=== PATIENT | female | born 1970 | race Caucasian/White ===

== ENCOUNTER 2021-07-23 10:55 | Emergency (ER) | payer OTHER ==
[2021-07-23] MEDS ORDERED: traMADol 50 MG Tab PO ONE (11:07)
[2021-07-23] MEDS ORDERED: Ibuprofen 800 MG Tab PO ONE (11:07)
--- NOTE | 2021-07-23 11:57 | EDM.PDOC ---
ED HPI GENERAL MEDICAL PROBLEM - General Chief Complaint: Lower Extremity Injury/Pain Stated Complaint: TWISTED ANKLE Time Seen by Provider: 07/23/21 11:00 Source of Information: Reports: Patient History Limitations: Reports: No Limitations - History of Present Illness INITIAL COMMENTS - FREE TEXT/NARRATIVE: Patient presented to the ED because of rt ankle and foot pain. She twisted her right foot and c/o 8/10 pain that is worse with ambulation. 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 Right Foot Pain Score (Numeric/FACES): 10 - Related Data Allergies Allergy/AdvReac Type Severity Reaction Status Date / Time codeine Allergy Anaphylactic Verified 07/23/21 11:08 Shock morphine Allergy Nausea and Verified 07/23/21 11:08 Vomiting Home Meds: Home Meds ALPRAZolam [Xanax] 0.5 mg PO ASDIRECTED PRN 07/28/14 [History] Levothyroxine Sodium [Synthroid] 137 mcg PO DAILY 07/28/14 [History] Multivitamin [Multi Vitamin Daily] 1 tab PO DAILY 07/28/14 [History] buPROPion HCl [Wellbutrin Xl] 150 mg PO DAILY 07/28/14 [History] Ibuprofen 800 mg PO Q8H PRN #30 tablet 07/23/21 [Rx] Past Medical History Endocrine/Metabolic History: Reports: Vitamin D Deficiency Hematologic History: Reports: Anemia, B12 Deficiency Oncologic (Cancer) History: Reports: Renal - Past Surgical History HEENT Surgical History: Reports: Tonsillectomy GI Surgical History: Reports: Cholecystectomy, Other (See Below) Other GI Surgeries/Procedures: Gastric bypass in 2010 Female Surgical History: Reports: Section, Hysterectomy, Nephrectomy, Other (See Below) Other Female Surgeries/Procedures: Partial nephrectomy. Endocrine Surgical History: Reports: Thyroidectomy Oncologic Surgical History: Reports: Other (See Below) Other Oncologic Surgeries/Procedures: partial nephrectomy Social & Family History - Tobacco Use Years of Tobacco use: 30 Packs/Tins Daily: 0.3 - Caffeine Use Caffeine Use: Reports: Coffee - Recreational Drug Use Recreational Drug Use: No Review of Systems - Review of Systems Review Of Systems: See Below Constitutional: Reports: No Symptoms Eyes: Reports: No Symptoms Ears: Reports: No Symptoms Nose: Reports: No Symptoms Mouth/Throat: Reports: No Symptoms Respiratory: Reports: No Symptoms Cardiovascular: Reports: No Symptoms GI/Abdominal: Reports: No Symptoms Genitourinary: Reports: No Symptoms Musculoskeletal: Reports: Joint Pain, Joint Swelling Skin: Reports: No Symptoms Neurological: Reports: No Symptoms Psychiatric: Reports: No Symptoms ED EXAM, GENERAL - Physical Exam Exam: See Below Exam Limited By: No Limitations General Appearance: Alert, No Apparent Distress Eye Exam: Bilateral Eye: PERRL Ears: Normal External Exam, Normal Canal, Normal TMs Nose: Normal Inspection, Normal Mucosa, No Blood Throat/Mouth: Normal Inspection, Normal Lips, Normal Teeth, Normal Gums, Normal Oropharynx, Normal Voice Head: Atraumatic, Normocephalic Neck: Normal Inspection, Supple, Non-Tender, Full Range of Motion Respiratory/Chest: No Respiratory Distress, Lungs Clear, Normal Breath Sounds, No Accessory Muscle Use, Chest Non-Tender Cardiovascular: Normal Peripheral Pulses, Regular Rate, Rhythm, No Edema, No Gallop, No JVD, No Murmur, No Rub GI/Abdominal: Normal Bowel Sounds, Soft, Non-Tender, No Organomegaly, No Dis tention, No Abnormal Bruit Back Exam: Normal Inspection, Full Range of Motion Extremities: Normal Inspection, Normal Range of Motion, No Pedal Edema, Normal Capillary Refill, Other (tenederness and swelling lateral aspect of the right foot) Neurological: Alert, Oriented, CN II-XII Intact, Normal Cognition, Normal Gait Psychiatric: Normal Affect, Normal Mood Skin Exam: Warm Course - Vital Signs Text/Narrative:: Xray rt foot/ankle-negative Ibuprofen 800 mg PO x1 Tramadol 100 mg PO x1 crutches provided in the ED Last Recorded V/S: Last Vital Signs Temp 36.3 C 07/23/21 12:06 Pulse 78 07/23/21 12:06 Resp 18 07/23/21 12:06 BP 152/81 H 07/23/21 12:06 Pulse Ox 97 07/23/21 12:06 - Orders/Labs/Meds Meds: Medications Discontinued Medications Generic Name Dose Route Start Last Admin Trade Name Max PRN Reason Stop Dose Admin Ibuprofen 800 mg 07/23/21 11:07 07/23/21 11:19 Ibuprofen 800 Mg Tab PO 07/23/21 11:08 800 mg ONETIME ONE Administration Tramadol HCl 100 mg 07/23/21 11:07 07/23/21 11:20 Tramadol 50 Mg Tab PO 11/23/21 11:08 100 mg ONETIME ONE Administration Departure - Departure Time of Disposition: 12:30 Disposition: Home, Self-Care 01 Condition: Good Clinical Impression: Ankle sprain, Foot sprain - Discharge Information Prescriptions: Ibuprofen 800 mg PO Q8H PRN #30 tablet PRN Reason: Pain Instructions: Crutch Use, Adult, [id number], Ankle Sprain, [id number], Foot Sprain Referrals: PCP,None [Primary Care Provider] - Forms: ED Department Discharge Additional Instructions: Please read discharge instructions on ankle and foot sprain Ice, Elevate Use your crutches until your ankle/foot feels better Take ibuprofen 800 mg with tylenol 1000 mg every 8 hours as needed for pain Folllow up as needed
--- NOTE | 2021-07-23 12:05 | CR ---
RIGHT FOOT INDICATION: Twisted ankle/foot, stepped on PVC pipe, rolling ankle. FINDINGS: Three views of the right foot were obtained 07/23/21 and revealed a moderate-sized plantar calcaneal spur. What appears to be an accessory ossicle is noted along the inferolateral aspect of the cuboid bone. It is fragmented. Acute fracture is unlikely with this appearance. Mild degenerative changes are suggested at the DIP joint of the third toe and minimally at the third metatarsophalangeal joint. An acute fracture or dislocation was not identified. IMPRESSION: 1. No acute fracture or dislocation. 2. Moderate-sized plantar calcaneal spur. 3. Minimal osteoarthritis. MTDD
--- NOTE | 2021-07-23 12:07 | CR ---
RIGHT ANKLE INDICATION: Twisted ankle/foot, stepped on PVC pipe, rolling ankle. FINDINGS: Three views of the right ankle revealed minimal degenerative changes at the medial malleolus. The ankle mortise appeared to be intact with the joint space symmetrical and talar dome intact. No significant soft tissue swelling was noted. An acute fracture or dislocation was not identified. Moderate-sized plantar calcaneal spur is noted. IMPRESSION: No acute fracture or dislocation. MTDD
== END 2021-07-23 12:30 | disposition home or self-care (01) ==
LOC: FB.ED 10:55
DX: S93.401A Sprain of unspecified ligament of right ankle, initial encounter (principal); S93.601A Unspecified sprain of right foot, initial encounter; Z88.5 Allergy status to narcotic agent; Z72.0 Tobacco use; X50.1XXA Overexertion from prolonged static or awkward postures, initial encounter
CPT/HCPCS: 73610; 73630; 99283; A9270

== ENCOUNTER 2021-09-29 13:59 | Emergency (ER) | payer OTHER ==
[2021-09-29] MEDS ORDERED: Lidocaine 1% 20 ML MDV INFILT ONE (14:00)
== END 2021-09-29 15:40 | disposition home or self-care (01) ==
LOC: FB.ED 13:59
DX: S61.210A Laceration without foreign body of right index finger without damage to nail, initial encounter (principal); Z87.891 Personal history of nicotine dependence; Z88.5 Allergy status to narcotic agent; W26.8XXA Contact with other sharp object(s), not elsewhere classified, initial encounter
CPT/HCPCS: 12001; 99282-25

== ENCOUNTER 2023-01-08 15:00 | Emergency (ER) | payer BC ==
[2023-01-08] MEDS ORDERED: Sodium Chloride 0.9% 10 ML Syringe FLUSH PRN (15:15)
[2023-01-08] MEDS ORDERED: HYDROmorphone 2 MG/ML SDV IVPUSH ONE (15:27)
[2023-01-08 15:49] LABS: BLOOD UREA NITROGEN,BUN 18 mg/dL (7-18); BUN/CREATININE RATIO 22.5 (9-20); CARBON DIOXIDE,CO2 30 mmol/L (21-32); CHLORIDE,CL 103 mmol/L (100-110); CREATININE 0.8 mg/dL (0.55-1.02); EST CRCL DRUG DOSING (CG) 77.88 mL/min; ESTIMATED GFR 89 mL/min (>60); GLUCOSE RANDOM 102 mg/dL (80-116); POTASSIUM,K 3.8 mmol/L (3.5-5.3); SODIUM,NA 141 mmol/L (135-145)
[2023-01-08 15:52] LABS: BASOPHILS ABSOLUTE AUTO 0.1 x10-3/uL (0.0-0.1); BASOPHILS PERCENT AUTO 0.7 % (0.2-1.5); EOSINOPHILS ABSOLUTE AUTO 0.5 x10-3/uL (0.0-0.8); EOSINOPHILS PERCENT AUTO 5.3 % (0.6-8.1); HEMATOCRIT 33.4 % (34.2-48.2); HEMOGLOBIN 11.1 g/dL (11.4-15.5); LYMPHOCYTES ABSOLUTE AUTO 2.4 x10-3/uL (1.0-4.4); LYMPHOCYTES PERCENT AUTO 27.7 % (18.4-52.1); MEAN CORPUSCULAR HEMOGLOBIN 30.5 pg (23.9-33.9); MEAN CORPUSCULAR HGB CONC 33.2 g/dL (31.9-34.8); MEAN CORPUSCULAR VOLUME 91.8 fL (76.7-100.5); MEAN PLATELET VOLUME 7.6 fL (7.1-12.4); MONOCYTES ABSOLUTE AUTO 0.9 x10-3/uL (0.3-1.0); MONOCYTES PERCENT AUTO 10.1 % (4.4-15.7); NEUTROPHILS ABSOLUTE AUTO 4.8 x10-3/uL (1.5-6.3); NEUTROPHILS PERCENT AUTO 56.2 % (30.8-76.2); PLATELET COUNT,PLT 236 x10(3)uL (151-488); RED BLOOD CELL COUNT 3.64 x10(6)uL (3.60-5.20); RED CELL DISTRIBUTION WIDTH 13.4 % (12.3-16.5); WHITE BLOOD CELL COUNT,WBC 8.6 x10-3/uL (3.0-10.3)
[2023-01-08 15:54] LABS: A/G RATIO 0.8; ALANINE AMINOTRANSFERASE,ALT 139 U/L (12-36); ALBUMIN 2.9 g/dL (3.5-5.2); ALKALINE PHOSPHATASE 126 IU/L (56-112); ASPARTATE AMNIOTRANSFERASE,AST 120 IU/L (5-25); BILIRUBIN TOTAL 0.5 mg/dL (0.1-1.3); PROTEIN TOTAL,TP 6.5 g/dL (6.0-8.0)
[2023-01-08] MEDS ORDERED: Iopamidol 755 Mg/ML 100 ML Bottle IV ONE (15:54)
[2023-01-08 16:08] LABS: D-DIMER QUANTITATIVE 1.53 mg/LFEU (0.0-0.59); INR 0.86 (1.00-1.24); PROTHROMBIN TIME 8.9 sec (9.0-11.1)
[2023-01-08 16:13] LABS: PTT,PARTIAL THROMBOPLSTIN TIME 25.2 SECONDS (24.4-33.2)
[2023-01-08 16:15] LABS: TROPONIN I < 4.0 pg/mL (4.0-60.3)
[2023-01-08 16:16] LABS: C-REACTIVE PROTEIN 5.4 mg/dL (0.5-0.9)
[2023-01-08] MEDS ORDERED: HYDROmorphone 2 MG/ML SDV IVPUSH STA (16:51)
== END 2023-01-08 17:50 | disposition home or self-care (01) ==
LOC: FB.ED 15:00
DX: R07.89 Other chest pain (principal); G89.18 Other acute postprocedural pain; Z88.5 Allergy status to narcotic agent; Z72.0 Tobacco use; Z96.652 Presence of left artificial knee joint; Z79.01 Long term (current) use of anticoagulants
CPT/HCPCS: 36415; 73701-LT; 80053; 84484; 85025; 85379; 85610; 85730; 86140; 93005; 96374; 96376; 99285-25; J1170; J3490; Q9967

== ENCOUNTER 2025-07-13 11:48 | Emergency (ER) | payer BC ==
[2025-07-13] MEDS ORDERED: Sodium Chloride 0.9% 10 ML Syringe FLUSH PRN ×2 (12:17→12:35)
[2025-07-13 12:39] LABS: BASOPHILS ABSOLUTE AUTO 0.1 x10-3/uL (0.0-0.1); BASOPHILS PERCENT AUTO 1.0 % (0.2-1.5); EOSINOPHILS ABSOLUTE AUTO 0.4 x10-3/uL (0.0-0.8); EOSINOPHILS PERCENT AUTO 4.9 % (0.6-8.1); LYMPHOCYTES ABSOLUTE AUTO 2.4 x10-3/uL (1.0-4.4); LYMPHOCYTES PERCENT AUTO 31.4 % (18.4-52.1); MEAN PLATELET VOLUME 8.0 fL (7.1-12.4); MONOCYTES ABSOLUTE AUTO 0.5 x10-3/uL (0.3-1.0); MONOCYTES PERCENT AUTO 6.9 % (4.4-15.7); NEUTROPHILS ABSOLUTE AUTO 4.3 x10-3/uL (1.5-6.3); NEUTROPHILS PERCENT AUTO 55.8 % (30.8-76.2); PLATELET COUNT,PLT 274 x10(3)uL (151-488); RED BLOOD CELL COUNT 5.04 x10(6)uL (3.60-5.20); RED CELL DISTRIBUTION WIDTH 13.9 % (12.3-16.5); WHITE BLOOD CELL COUNT,WBC 7.7 x10-3/uL (3.0-10.3)
[2025-07-13 12:41] LABS: BLOOD UREA NITROGEN,BUN 12 mg/dL (7-18); CARBON DIOXIDE,CO2 31 mmol/L (21-32); CHLORIDE,CL 104 mmol/L (100-110); CREATININE 0.7 mg/dL (0.55-1.02); EST CRCL DRUG DOSING (CG) 86.01 mL/min; ESTIMATED GFR 103 mL/min (>60); GLUCOSE RANDOM 93 mg/dL (80-116); POTASSIUM,K 4.4 mmol/L (3.5-5.3); SODIUM,NA 142 mmol/L (135-145)
[2025-07-13] MEDS: Ondansetron 4 MG/2 ML SDV IVPUSH ONE (12:41)
[2025-07-13] MEDS: HYDROmorphone 2 MG/ML SDV IVPUSH STA (12:42)
[2025-07-13 12:47] LABS: A/G RATIO 1.1; ALANINE AMINOTRANSFERASE,ALT 17 U/L (12-36); ASPARTATE AMNIOTRANSFERASE,AST 24 IU/L (5-25); BILIRUBIN TOTAL 0.6 mg/dL (0.1-1.3); PROTEIN TOTAL,TP 7.5 g/dL (6.0-8.0)
[2025-07-13 12:57] LABS: LACTIC ACID 0.7 mmol/L (0.4-2.0)
[2025-07-13] MEDS: Iopamidol 755 Mg/ML 100 ML Bottle IV SCH (13:06)
[2025-07-13] MEDS: Ketorolac 30 MG/ML SDV IVPUSH ONE (13:26)
== END 2025-07-13 15:50 | disposition home or self-care (01) ==
LOC: FB.ED 11:48
DX: R10.31 Right lower quadrant pain (principal); F17.200 Nicotine dependence, unspecified, uncomplicated; Z79.899 Other long term (current) drug therapy; Z88.5 Allergy status to narcotic agent; Z88.8 Allergy status to other drugs, medicaments and biological substances; Z79.890 Hormone replacement therapy; Z79.01 Long term (current) use of anticoagulants; Z90.49 Acquired absence of other specified parts of digestive tract; Z90.710 Acquired absence of both cervix and uterus
CPT/HCPCS: 36415; 74177; 74177-26; 80053; 83605; 83690; 85025; 96361; 96374; 96375; 99284-25; J1171; J1885; J2405; J7030; Q9967